=== PATIENT | female | born 1950 | race Caucasian/White ===

== ENCOUNTER 2018-01-23 18:46 | Emergency (ER) | payer MEDICARE ==
[~2018-01-23] VITALS: Ht 162.6 cm; Wt 100.0 kg
[2018-01-23 18:48] VITALS: BP 136/82
[2018-01-23] MEDS ORDERED: HYDROcodone/APAP 5/325 TABLET PO ONE (20:30)
[2018-01-23] MEDS ORDERED: HYDROcodone/APAP 5/325 TABLET ONE (21:05)
== END 2018-01-23 21:45 | disposition home or self-care (01) ==
LOC: ED 21:00
DX: S93.401A Sprain of unspecified ligament of right ankle, initial encounter (principal); S39.92XA Unspecified injury of lower back, initial encounter; G89.11 Acute pain due to trauma; R07.89 Other chest pain; W01.0XXA Fall on same level from slipping, tripping and stumbling without subsequent striking against object, initial encounter; Y93.89 Activity, other specified; Y92.89 Other specified places as the place of occurrence of the external cause; Y99.8 Other external cause status
CPT/HCPCS: 99284